=== PATIENT | female | born 1970 | race Caucasian/White ===

== ENCOUNTER 2016-11-28 18:10 | Emergency (ER) | payer BC ==
[2016-11-28 18:17] VITALS: BP 115/78; PULSE 87; TEMP 98.1; BMI 41.0
[2016-11-28] MEDS ORDERED: SILVER SULFADIAZINE 1% TOP CREAM 50 GM JAR TP ONE (19:01)
[2016-11-28] MEDS ORDERED: DIPHTH,PERTUSS(ACELL),TET 0.5 ML DISP.SYRIN IM ONE (19:15)
[2016-11-28] MEDS ORDERED: SILVER SULFADIAZINE 1% TOP CREAM 400 GM JAR TP ONE (19:15)
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
[2016-11-28] MEDS ORDERED: CEPHALEXIN MONOHYDRATE 500 MG CAPSULE (UD) PO ONE (19:31)
[2016-11-28] MEDS ORDERED: CEPHALEXIN MONOHYDRATE 500 MG CAPSULE (UD) ONE (19:34)
== END 2016-11-28 19:37 | disposition home or self-care (01) ==
LOC: FER 18:10
PROC: 2W23X4Z Dressing of Abdominal Wall using Bandage (ICD-10-PCS; principal; 2016-11-28)
DX: T21.22XA Burn of second degree of abdominal wall, initial encounter (principal); X12.XXXA Contact with other hot fluids, initial encounter; Y93.G3 Activity, cooking and baking; Y92.9 Unspecified place or not applicable; I10 Essential (primary) hypertension
CPT/HCPCS: 90715; 99282-25

== ENCOUNTER 2018-10-27 10:35 | Day surgery (SDC) | payer BC ==
[2018-10-22 13:01] VITALS: BMI 34.7
[2018-10-27] MEDS: TROPICAMIDE 1% OPHTH SOLN 15 ML BOTTLE ONE ×3 (11:20→11:30)
[2018-10-27] MEDS: CYCLOPENTOLATE 2% OPHTH SOLN 2 ML BOTTLE ONE ×3 (11:20→11:30)
[2018-10-27] MEDS: PHENYLEPHRINE 2.5% OPHTH SOLN 15 ML BOTTLE ONE ×3 (11:20→11:30)
[2018-10-27] MEDS: CIPROFLOXACIN 0.3% EYE DROPS 5 ML BOTTLE ONE ×3 (11:20→11:30)
[2018-10-27] MEDS ORDERED: MIDAZOLAM HCL 2 MG/2 ML SINGLE DOSE VIAL ONE (11:43)
[2018-10-27] MEDS ORDERED: BSS (NA/CA/MG/K) BALANCED SALT SOLUTION OPHTH SOLN 15 ML BOTTLE ONE (11:44)
[2018-10-27] MEDS ORDERED: LIDOCAINE 1% P/F 10 MG/ML VIAL ONE (11:44)
[2018-10-27] MEDS ORDERED: CARBACHOL 0.01% INTRA-OCULAR 1.5 ML VIAL ONE (11:44)
[2018-10-27] MEDS ORDERED: ACETAMINOPHEN 325 MG TABLET (FP) PO PRN (11:58)
[2018-10-27] MEDS ORDERED: ONDANSETRON 4 MG/2 ML VIAL IVPUSH PRN (11:58)
[2018-10-27] MEDS ORDERED: LACTATED RINGERS SOLUTION 1,000 ML IV SCH (12:00)
[2018-10-27 12:39] VITALS: TEMP 97.9
[2018-10-27 14:00] VITALS: BP 115/70; PULSE 74
--- NOTE | 2018-10-28 08:26 | OP ---
DATE OF OPERATION: 10/27/2018 OPERATIVE PROCEDURE: Lens Phacoemulsification with Posterior Chamber Intraocular Lens Placement Left Eye PREOPERATIVE DIAGNOSIS: Visually Significant Cataract of Left Eye POSTOPERATIVE DIAGNOSIS: Visually Significant Cataract of Left Eye SURGEON: Morales Telles M.D. ANESTHESIA: MAC ANESTHESIOLOGIST: PROCEDURE: The patient was brought to the operating room and placed under monitored anesthesia care by Anesthesia. A drop of Tetracaine was then placed over the left eye. The patient was then prepped and draped in the usual sterile manner. A speculum was then placed over the left eye. The eye was then well irrigated with copious amounts of BSS (balanced salt solution). The operating microscope was then moved into position. A paracentesis was performed using a 15 degree blade. At this point 0.5 mL of 1% preservative-free lidocaine was injected into the anterior chamber. Amvisc plus was then injected into the anterior chamber. A clear corneal incision was then formed using a 2.2 mm keratome. A capsulorrhexis was then performed in a continuous circular fashion beginning with a cystotome, completed with an Utratas forceps. Hydrodissection was then performed using BSS on a cannula. The phaco probe was then introduced through the corneal wound and the cataract was removed using the phaco chop technique. Approximately 3 seconds of absolute phaco time was used. The remaining cortex was then removed using irrigation and aspiration with an I/A probe. The capsule was then filled with regular Amvisc and the capsule was noted to be intact. A previously selected foldable posterior chamber intraocular lens was then injected into the capsule through the corneal wound using a lens injector. It was then dialed into position using a Sinskey hook. The Amvisc was then removed using irrigation and aspiration. Miostat was then injected through the paracentesis to constrict the pupil. The paracentesis and corneal wound were then hydrated and noted to be water tight. A drop of Maxitrol was then placed over the eye. The speculum was removed and clear shield was taped over the eye. The patient tolerated the procedure well and there were no surgical complications. The patient was asked to follow up in my office the next day. MORALES TELLES M.D. CRISELDA/[id number]
== END 2018-10-27 13:15 | disposition home or self-care (01) ==
LOC: FASU 10:35
PROVIDERS: ATTEND Ophthalmology
PROC: 08RK3JZ Replacement of Left Lens with Synthetic Substitute, Percutaneous Approach (ICD-10-PCS; principal; 2018-10-27 12:05)
DX: H26.8 Other specified cataract (principal)

== ENCOUNTER 2020-12-05 07:47 | Day surgery (SDC) | payer BC ==
[2020-11-28 10:07] VITALS: BMI 45.7
[2020-12-05] MEDS: TROPICAMIDE 1% OPHTH SOLN 15 ML BOTTLE ONE ×3 (08:25→08:35)
[2020-12-05] MEDS: CYCLOPENTOLATE 2% OPHTH SOLN 2 ML BOTTLE ONE ×3 (08:25→08:35)
[2020-12-05] MEDS: CIPROFLOXACIN HCL 0.3% OPHTH 2.5ML BOTTLE ONE ×3 (08:25→08:35)
[2020-12-05] MEDS ORDERED: PHENYLEPHRINE 2.5% OPHTH SOLN 15 ML BOTTLE OD ONE ×3 (08:25→08:35)
[2020-12-05] MEDS ORDERED: MIDAZOLAM HCL 2 MG/2 ML SINGLE DOSE VIAL ONE (10:33)
[2020-12-05] MEDS ORDERED: ACETAMINOPHEN 325 MG TABLET (FP) ONE (11:08)
[2020-12-05 11:26] VITALS: TEMP 98.5
[2020-12-05] MEDS ORDERED: TETRACAINE 0.5% OPHTH SOLN 2 ML BOTTLE ONE (11:46)
[2020-12-05] MEDS ORDERED: CARBACHOL 0.01% INTRA-OCULAR 1.5 ML VIAL ONE (11:46)
[2020-12-05] MEDS ORDERED: BSS (NA/CA/MG/K) BALANCED SALT SOLUTION OPHTH SOLN 15 ML BOTTLE ONE (11:46)
[2020-12-05] MEDS ORDERED: NEO/POLYMYX B SULF/DEXAMETH OPHTHALMIC 5ML BOTTLE ONE (11:46)
[2020-12-05] MEDS ORDERED: LIDOCAINE 1% P/F 10 MG/ML VIAL ONE (11:46)
[2020-12-05 12:08] VITALS: BP 117/68; PULSE 68
== END 2020-12-05 11:50 | disposition home or self-care (01) ==
LOC: FASU 07:47
PROVIDERS: ATTEND Ophthalmology
PROC: 08RJ3JZ Replacement of Right Lens with Synthetic Substitute, Percutaneous Approach (ICD-10-PCS; principal; 2020-12-05 10:39)
DX: H26.8 Other specified cataract (principal)

== ENCOUNTER 2025-06-13 13:23 | Emergency (ER) | payer BC ==
[2025-06-13 13:39] VITALS: RESP 20; BMI 31.6
[2025-06-13 16:16] LABS: ABSOLUTE IMMATURE GRANULOCYTES 0.01 x10^3/uL (0.0-0.031); BASOPHILS # 0.02 x10^3/uL (0.01-0.08); EOSINOPHIL % 2.1 % (0.7-5.8); EOSINOPHILS # 0.27 x10^3/uL (0.04-0.36); MCHC 32.6 g/dl (32.2-35.5); MEAN CELL VOLUME 87.4 fl (79.4-94.8); MEAN PLT VOLUME 10.3 fl (9.4-12.3); MONOCYTE # 0.88 x10^3/uL (0.24-0.86); MONOCYTE % 6.7 % (4.7-12.5); RDW 12.9 % (12.3-16.6)
[2025-06-13 17:02] LABS: ALK PHOS 87.0 U/L (45-117); CO2 27.0 mmol/L (21-32); CREATININE 0.6 mg/dl (0.6-1.3); GLUCOSE,RANDOM 95.0 mg/dl (74-106); SGOT/AST 16.0 U/L (15-37); SGPT/ALT 19.0 U/L (7-52); TOT PROT 6.4 g/dl (6.4-8.2)
[2025-06-13 17:58] VITALS: BP 125/86; PULSE 81; TEMP 98.2
[2025-06-13 19:09] LABS: HIV INTERPRETATION NEGATIVE (NEGATIVE)
[2025-06-13 19:10] LABS: HCV DIAGNOSTIC IN-HOUSE W/RFLX NON-REACTIVE (NONREACTIVE)
== END 2025-06-13 17:58 | disposition home or self-care (01) ==
LOC: FER 13:23
DX: R45.0 Nervousness (principal); R11.2 Nausea with vomiting, unspecified; R07.89 Other chest pain; R00.2 Palpitations
CPT/HCPCS: 36415; 71046-TC-FY; 80053; 82962; 84443; 84484; 85025; 86803; 87389; 93005; 93010; 99285-25